=== PATIENT | female | born 1990 | race Caucasian/White ===

== ENCOUNTER 2025-01-16 18:34 | Emergency (ER) | payer OTHER, SELFPAY ==
--- OUTSIDE RECORDS SUMMARY | 2025-01-16 18:37 | XMS_ITS | Patient Health Record ---
Author Organization [facility] Address [address] [place] [address] Care Team Providers Care Weather Strip Mechanic Name Role Phone None, No PCP Primary Care Provider Sugar Gonsalezie Marcelo [phone] Allergies Allergen (clinical drug ingredient) Drug/Non Drug Allergy documented on EMR Reaction Allergy Type Onset Date Status minocycline Minocycline Unknown Drug Allergy Act roscoe Reason For Referral No Information Medications Medication SIG (Take, Route, Frequency, Duration) Notes Start Date End Date Status Reclipsen 0.15-30 MG-MCG 1 tablet Orally Once a day for 30 days 02/03/2023 Active Immunizations Vaccine Route Administration Date Status Comme nts TDAP VACCINE >7 IM IM Intramuscular 08/23/2022 Administere d Social History Tobacco Use: Social History Observation Description Date Details (start date - stop date) Never Smoker NA - NA Tobacco Use/Smoking Question Answer Notes Are you a nonsmoker Plan Of Treatment Pending Test Test Name Order Date CULTURE, URINE, ROUTINE 02/03/2023 Insurance Providers Payer Name Payer Address Payer Phone Subscriber Number Group Number Insured Name Patient Relationship to Insured Coverage Start Date Coverage End Date [facility] Commercial (Ins. Bill) [address] [address] [place], [place] [phone] [id number] Maria Victoria Cooper Self - patient is the insured Medical (General) History Medical History History ICD Code denies medical hx. Surgical History Surgery Date(Month/Year)
--- OUTSIDE RECORDS SUMMARY | 2025-01-16 18:37 | XMS_ITS | Clinical Summary ---
Author Organization [facility] Address [address] [place] [address] Care Team Providers Care Coil Taper Name Role Phone Marcelina Harriet Cannon CNM Primary Care Provider [phone]- [phone] Allergies Active Allergy Reactions Criticality Noted Date Comments Minocycline Hives 11/09/2022 Medications Vit-Fe Fumarate-FA ( MULTIVITAMIN W/IRON) 27-0.8 MG tablet Take by mouth daily Active acetaminophen (TYLENOL) 325 MG tabletIndication s: (normal spontaneous vaginal delivery) Take 2 tablets (650 mg) by mouth every 4 hours as needed for mild pain or fever (greater than or equal to 38 C /100.4 F (oral) or 38.5 C/ 101.4 F (core).) 3 Active docusate sodium (COLACE) 100 MG capsuleIndicatio ns: (normal spontaneous vaginal delivery) Take 1 capsule (100 mg) by mouth 2 times daily 3 Active ibuprofen (ADVIL/MOTRIN) 800 MG tabletIndication s: (normal spontaneous vaginal delivery) Take 1 tablet (800 mg) by mouth once as needed for inflammatory pain (For mild to moderate pain.) 3 Active ferrous sulfate (FEROSUL) 325 (65 Fe) MG tabletIndication s:Anemia due to blood loss, acute Take 1 tablet (325 mg) by mouth every other day 90 tablet 3 Active Active Problems Problem Noted Date Diagnosed Date Encounter for induction of labor 11/09/2022 Immunizations Immunization Administration Dates Next Due MMR (MMRII) 11/14/2022 Social History Tobacco Use Types Packs/Day Years Used Date Smoking Tobacco: Never Smokeless Tobacco: Never Tobacco Cessation:Counseling Given: Not Answered Alcohol Use Standard Drinks/Week Comments Not Currently 0 (1 standard drink = 0.6 oz pur e alcohol) [place] Depression Scale Answer Date Recorded Last EPDS Total Score Not on file 11/14/2022 The thought of harming myself has occurred to me . Never 11/14/2022 Adolescent Education Answer Date Record ed Getting School Help Needed Not on file 03/18 Comments No Sex and Gender Information Value Date Recorded Sex Assigned at Not on file Legal Sex Female 11:28 AM CDT Gender Identity Not on file Sexual Orientation Not on file Last Filed Vital Signs Vital Sign Reading Time Taken Comments Blood Pressure 112/67 11/14/2022 9:00 AM CDT Pulse 70 11/14/2022 9:00 AM CDT Temperature 36.7 C (98.1 F) 11/14/2022 9:00 AM CDT Respiratory Rate 16 11/14/2022 9:00 AM CDT Oxygen Saturation 98% 11/14/2022 9:00 AM CDT Inhaled Oxygen Concentration - - Weight 66 kg (145 lb 9.6 oz) 11/14/2022 6:43 AM CDT Height 162.6 cm (5' 4) 11/09/2022 7:39 AM CDT Body Mass Index 24.99 11/09/2022 7:39 AM CDT Plan of Treatment Health Maintenance Due Date Last Done Comments ADVANCE CARE PLANNING 1990 ANNUAL REVIEW OF HM ORDERS 1990 YEARLY PREVENTIVE VISIT 1993 HEPATITIS B VACCINE (1 of 3 - 19+ 3-dose series) 2009 PAP 10/22/2011 DTAP/TDAP/TD VACCINE (1 - Tdap) 10/22/2015 COVID-19 VACCINE (3 - 2023-2 5 season) 2024 06/16/2021, 10/04/2020 PHQ-2 (once per calendar year) 2024 INFLUENZA VACCINE (#1) 2025 ZOSTER VACCINE (1 of 2) 2040 HEPATITIS C SCREENING Completed 04/13/2022 HIV SCREENING Completed 04/13/2022 HPV VACCINE (No Doses Required) Completed MENINGITIS VACCINE Aged Out No longer eligible based on patient's age to complete this topic PNEUMOCOCCAL VACCINE: PEDIATRICS (0 to 5 YEARS) AND AT-RISK PATIENTS (6 to 49 YEARS) Aged Out No longer eligible b ased on patient's age to complete this topic Procedures Procedure Name Priority Date/Time Associated Diagnosis Comments HIV 1&2 ANTIBODY (EXTERNAL RESULT) Routine 04/13/2022 12:00 PM CDT HEPATITIS C ANTIBODY (EXTERNAL RESULT) Routine 04/13/2022 12:00 PM CDT from Last 3 Months or Most Recently Relevant to Health Maintenance Results * Hepatitis C Antibody (External Result) (04/13/2022 12:00 PM CDT) Hepatitis C Antibody (External) Nonreactive Nonreactive [facility] 04/13/2022 12:0 0 PM CDT us Patient Reported LAB - HIM EXTERNAL RESULT Final Result [facility] [address] [phone] * HIV-1 Antibody (External Result) (04/13/2022 12:00 PM CDT) HIV 1&2 Antibody (External) Nonreactive Nonreactive [facility] 04/13/2022 12:0 0 PM CDT us Patient Reported LAB - HIM EXTERNAL RESULT Final Result Performing Organization Address [facility]/ZIP Co de Phone Number [facility] [address] [place] [address], [facility] [phone] from Last 3 Months or Most Recently Relevant to Health Maintenance Insurance [address] [address] [place] [address] COMMERCIAL Advance Directives For more information, please contact: [phone] * Full Code (Latest Code Status on File) Date Activated Date Inactivated Comments 11/09/2022 8:25 AM 11/14/2022 6:15 PM All basic an d advanced life-sustaining interventions are performed as appropriate Question Answer Comments Code status determined by: Discussion with alonzo nt/ legal decision maker Care Teams Coil Taper Relationship Specialty Start Date End Date Harriet Hewitt CNM [address] [place] [address] PCP - General Midwives 06/01/22
[2025-01-16 18:38] VITALS: BP 127/67; PULSE 66; RESP 18; TEMP 36.5; O2SAT 99; BMI 22.3
--- NOTE | 2025-01-16 18:51 | CRLHL7_ITS ---
For Patients: As a result of the Cures Act, medical imaging exams and procedure reports are released immediately into your electronic medical record. You may view this report before your referring provider. If you have questions, please contact your health care provider. Indication: stepped on by horse swelling/pain thenar EM Technique: Three views of the left hand Comparison: None Findings/Impression: No acute fracture or malalignment. Bones are unremarkable. Soft tissue edema of the thenar eminence. Dictated by Matthias Contreras MD @ 01/16/2025 7:31:07 PM (Electronically Signed)
[2025-01-16] MEDS: LIDOCAINE 1%-EPI 1:100,000 3 ML INFILTRATI (19:23)
--- NOTE | 2025-01-16 19:46 | ED_ITS ---
HPI - General Adult General Date Seen: 01/16/25 Chief complaint: Fall/Minor Trauma Stated complaint: L hand stepped on by horse Time Seen by Provider: 01/16/25 18:35 History of Present Illness HPI narrative: Patient is a 34-year-old generally healthy young woman who was outside working with her family's horses, she says that she was on the ground near 1 horse, another horse came over and in the intervening scuffle she was not able to move out of the way and her left hand was stepped on. She complains of swelling and pain primarily over the thenar eminence. There is a little bit of bleeding there but she has not checked to see where it is coming from. She denies any head, neck or back pain. She says the rest of her is not injured aside from a little bit of a sore spot near her posterior right pelvis. She is walking without difficulty and does not feel there are any broken bones. Infection does not think there broken bones in her hand either but wanted to get it checked out. She is able to move her fingers without difficulty. No numbness or loss of function. Related Data Home Medications ?Medication ?Instructions ?Recorded ?Confirmed No Known Home Medications 01/16/2512/25 Allergies Allergy/AdvReac Type Severity Reaction Status Date / Time minocycline Allergy Intermediate Hives Verified 01/16/25 18:38 [facility] Social History Smoking Status: Never smoker Do you use any of these nicotine containing products: None How often do you have a drink containing alcohol: monthly or less How many standard drinks containing alcohol do you have on a typical day: 1 or 2 AUDIT-C Alcohol total score: 1 Non-prescribed substance use: denies use service: No Exam Narrative: Exam Narrative: Vital signs reviewed In general, alert, well-appearing woman. Head: Normocephalic, atraumatic. Neck: Nontender to palpation. Chest: Nontender, atraumatic. Abdomen: Nontender. Back: Nontender, atraumatic. Extremities: Examination of the left hand shows swelling over the thenar eminence and tenderness in this area. She does not have any tenderness over the dorsal aspect of the 1st MT CP however. No obvious deformity. She does have a 2 cm laceration over the thenar eminence. Distal CMS is intact. Full range of motion of the fingers noted. Const: Vital Signs, click to edit/add: Vital Signs - 24 hr 01/16/25 18:38 Temperature 97.7 F Pulse Rate [Pulse Oximeter] 66 Respiratory Rate 18 Blood Pressure [Ri ght Upper Arm] 127/67 Pulse Oximetry 99 Oxygen Delivery Me thod Room Air Course Course ED Course: She had x-rays of the left hand which by my review did not show obvious fracture. There was 1 area of lucency that I question on the oblique view, this was in the carpal bones, but palpation of her wrist shows absolutely no tenderness at all and she is able to move her wrist without pain. Radiologist reads the x-rays as showing no acute fracture or malalignment. They do not soft tissue edema of the thenar eminence. Procedure note: Wound on the hand was anesthetized using lidocaine with epinephrine, cleaned with saline, explored that evidence of foreign body or injury to deeper structures. I closed this using 5 0 nylon, a total of 4 simple interrupted superficial sutures were placed. She tolerated this well without immediate complication. A dressing is applied by the nurse. She does have just a lot of tenderness over the thenar eminence and overall I decided to put her in a thumb spica splint just to protect the area little bit over the next few days. We discussed what to watch for in terms of wound infection, return any time for signs or symptoms of wound infection. Reviewed that x-rays are negative today, if she continues to have significant pain swelling or does not feel she is improving she should be seen again. Tetanus was updated today. Vital Signs Vital signs: Initial Vital Signs Temperature 97.7 F 01/16/25 18:38 Temperature Source Temporal Artery Scan 01/16/25 18:38 Pulse Rate 66 01/16/25 18:38 Respiratory Rate 18 01/16/25 18:38 Blood Pressure 127/67 01/16/25 18:38 Blood Pressure Mean 87 01/16/25 18:38 Blood Pressure Position Sitting 01/16/25 18:38 Pulse Oximetry 99 01/16/25 18:38 Oxygen Delivery Method Room Air 01/16/25 18:38 Vital Signs Temperature 97.7 F 01/16/25 18:38 Pulse Rate 66 01/16/25 18:38 Respiratory Rate 18 01/16/25 18:38 Blood Pressure 127/67 01/16/25 18:38 Pulse Oximetry 99 01/16/25 18:38 Oxygen Delivery Method Room Air 01/16/25 18:38 Temperature 97.7 F 01/16/25 18:38 Pulse Rate 66 01/16/25 18:38 Respiratory Rate 18 01/16/25 18:38 Blood Pressure 127/67 01/16/25 18:38 Pulse Oximetry 99 01/16/25 18:38 Oxygen Delivery Method Room Air 01/16/25 18:38 Medications Administered Medications: Discontinued Medications Generic Name Dose Route Start Last Admin Trade Name Anai PRN Reason Stop Dose Admin Lidocaine/Epinephrine 3 ml 01/16/25 19:19 01/16/25 19:23 Lidocaine 1%-Epi 1:100,000 INFILTRATI 01/16/25 19:20 3 ml ONCE ONE Administration Medical Decision Making Imaging Data Hand x-ray: Attestation: I have reviewed the pertinent imaging results. Radiologist's impression: Patient: ISAI FLORES Facility: [facility] Site . Site : 1990 Study: XRay-Extremity Left HAND 3V-01/16/2025 7:24:27 PM Ordering Physician: Edgard Salas Final Report: Indication: stepped on by horse swelling/pain thenar EM Technique: Three views of the left hand Comparison: None Findings/Impression: No acute fracture or malalignment. Bones are unremarkable. Soft tissue edema of the thenar eminence. Dictated by Matthias Contreras MD @ 01/16/2025 7:31:07 PM Discharge Plan Discharge Clinical Impression: Hand laceration Patient Disposition: Home, Self-Care Condition: Stable Instructions: Laceration (DC) Additional Instructions: Your x-ray does not show any evidence of broken bones. X-rays are not perfect, and if you continue to have significant pain, swelling, do not feel like you are improving over the next 1-2 weeks, he should be seen again. Keep your wound clean dry and protected. Sutures should be removed in clinic in about 7-10 days. You can use ibuprofen and/or Tylenol as needed for pain. Ice may be helpful as well. The splint can be worn as needed to protect the injured area of your hand. Prescriptions: No Action No Known Home Medications Follow Up/Referrals: Provider,Not a Local [Primary Care Provider, Family Practice] Stand Alone Forms: MyHealth Info Instructions
[2025-01-16] MEDS: TETANUS/DIPHTH/PERTUSSIS 0.5 ML SYRINGE IM (20:02)
== END 2025-01-16 20:06 | disposition home or self-care (01) ==
PROVIDERS: Emergency Provider Emergency Medicine
DX: S61.412A Laceration without foreign body of left hand, initial encounter (principal); Z23 Encounter for immunization; W55.12XA Struck by horse, initial encounter
CPT/HCPCS: 12001; 73130; 90471; 90715; 99283; 99284

== ENCOUNTER 2025-04-28 13:11 | Emergency (ER) | payer OTHER, SELFPAY ==
[2025-04-28] VITALS (74 sets, daily range): BP systolic 94–128; BP diastolic 55–83; PULSE 55–89; RESP 6–29; TEMP 36.9; O2SAT 96–100; BMI 22.3
--- NOTE | 2025-04-28 | XR_ITS ---
Patient: ISAI FLORES Facility:?[facility] Patient ID:?[id number] Site Patient ID:?[id number]. Site :?1990 Study:?XRay-Extremity Right ankle 3v-04/28/2025 8:41:43 AM Ordering Physician:?Deandre Madsen Final Report: Indication: Post reduction attempt #2 Technique: Multiple images of the right ankle submitted, 10 images total in 3 different views. IMPRESSION: Multiple attempts at closed reduction with persistent widening of the mortise. Fractures of the lateral malleolus and distal tibia again noted. Overlying cast. Dictated by Franko Lim MD @ 05/05/2025 10:14:47 AM Signed by:?Franko Lim MD @05/05/2025 10:14:47 AM (Electronic Signature)
--- OUTSIDE RECORDS SUMMARY | 2025-04-28 13:16 | XMS_ITS | Clinical Summary ---
Author Organization [facility] Address [address] [place] [address] Care Team Providers Care Nutrition Club Ambassador Name Role Phone Marcelina Harriet Cannon CNM Primary Care Provider +1- [phone] Allergies Active Allergy Reactions Criticality Noted Date [...] 10/22/2011 DTAP/TDAP/TD VACCINE (1 - Tdap) 10/22/2015 PHQ-2 (once per calendar year) 2024 COVID-19 VACCINE (3 - 2024-2 6 season) 2025 06/16/2021, 10/04/2020 INFLUENZA VACCINE (#1) 2025 ZOSTER VACCINE (1 [...] Result [facility] [address] [phone] * HIV-1 Antibody (External Result) (04/13/2022 12:00 PM CDT) HIV 1&2 Antibody (External) Nonreactive Nonreactive [facility] 04/13/2022 12:0 0 PM CDT us Patient Reported LAB - HIM EXTERNAL RESULT Final Result Performing Organization Address [facility]/ZIP Co de Phone Number [facility] [address] [place] [address], [facility] [phone] from Last 3 Months or Most Recently Relevant to Health Maintenance Insurance [address] [address] [place] [address] COMMERCIAL Advance Directives For more information, please contact: [phone] * Full Code (Latest Code Status on File) Date Activated Date Inactivated Comments 11/09/2022 8:25 AM 11/14/2022 6:15 PM All basic an d advanced life-sustaining interventions are performed as appropriate Question Answer Comments Code status determined by: Discussion with alonzo nt/ legal decision maker Care Teams Nutrition Club Ambassador Relationship Specialty Start Date End Date Harriet Hewitt CNM [address] [place] [address] PCP - General Midwives 06/01/22
--- OUTSIDE RECORDS SUMMARY | 2025-04-28 13:16 | XMS_ITS | Patient Health Record ---
Author Organization [facility] Address [address] [place] [address] Care Team Providers Care Product Strategy Director Name Role Phone None, No PCP Primary Care Provider Alba Gonsalez [phone] Allergies Allergen (clinical drug ingredient) Drug/Non Drug Allergy documented on EMR Reaction Allergy Type Onset Date Status minocycline Minocycline Unknown Drug Allergy Act roscoe Reason For Referral No Information Medications Medication SIG (Take, Route, Frequency, Duration) Notes Start Date End Date Status Reclipsen 0.15-30 MG-MCG 1 tablet Orally Once a day; Duration: 30 days 02/03/2023 Active Immunizations Vaccine Route [...] Insured Coverage Start Date Coverage End Date [facility] Commercial (Ins. Bill) [address] [address] [place], [place] [id number] Maria Victoria Cooper Self - patient is the insured Medical (General) History Medical History History ICD Code denies medical hx. Surgical History Surgery Date(Month/Year)
--- NOTE | 2025-04-28 14:05 | CRLHL7_ITS ---
For Patients: As a result of the Century Cures Act, medical imaging exams and procedure reports are released immediately into your electronic medical record. You may view this report before your referring provider. If you have questions, please contact your health care provider. Indication: Right ankle pain after falling off horse Technique: Three views right ankle IMPRESSION: Displaced fracture of the lateral malleolus. Disruption of the mortise with lateral angulation of the talus in relation to the distal tibia along with widening of the space between the medial talus and medial malleolus. Intra-articular fracture of the medial distal tibia noted with intra-articular extension. Dictated by Franko Lim MD @ 04/28/2025 2:52:48 PM (Electronically Signed)
--- NOTE | 2025-04-28 15:37 | ED.GENADULT ---
HPI - General Adult General Date Seen: 04/28/25 Chief complaint: Extremity Pain/Injury, Lower Stated complaint: hurt right ankle Time Seen by Provider: 04/28/25 15:23 History of Present Illness HPI narrative: Very pleasant 34-year-old female who is generally healthy presenting to the ER today by private car with her with right ankle pain. She is generally healthy and is not on any medications or allergies. She was riding her horse this morning when she fell off. She tried to lay in her feet but landed awkwardly on her right ankle and twisted inward. She fell to the ground because her ankle was hurting. No other injury from the fall. No knee pain. No upper leg pain or hip pain. No back pain. She did not hit her head or injure her upper extremities, neck, shoulders, or arms. No trouble breathing. Normal mental status since the accident. No blurry vision. No nausea vomiting. She is otherwise healthy. No recent illnesses. She has noted a few palpitations lately and has been meaning to schedule an appointment with her doctor to get that checked out. She is not really feeling any palpitations today. She has no other heart history. Last ate late this morning with a bagel with peanut butter. Approximately 4-5 hours prior to arrival. Related Data Home Medications ?Medication ?Instructions ?Recorded ?Confirmed No Known Home Medications 01/16/25 01/16/25 Allergies Allergy/AdvReac Type Severity Reaction Status Date / Time minocycline Allergy Intermediate Hives Verified 01/16/25 18:38 [facility] Social History Smoking Status: Never smoker Do you use any of these nicotine containing products: None How often do you have a drink containing alcohol: monthly or less How many standard drinks containing alcohol do you have on a typical day: 1 or 2 AUDIT-C Alcohol total score: 1 Non-prescribed substance use: denies use service: No Exam Narrative: Exam Narrative: Constitutional: Appears well-developed and well-nourished. Alert. Conversant. Non toxic. HENT: Head: Atraumatic. Nose: Nose normal. Mouth/Throat: Oral mucosa is clear and moist. no trismus. Pharynx normal. Tonsils symmetric. No tonsillar enlargement, erythema, or exudate. Mallampati grade 2 Eyes: Conjunctivae normal. EOM normal. Pupils equal, round, and reactive to light. No scleral icterus. Neck: Normal range of motion. Neck supple. No tracheal deviation present. Cardiovascular: Normal rate, regular rhythm. No gallop. No friction rub. No murmur heard. Symmetric radial artery pulses Pulmonary/Chest: Effort normal. No stridor. No respiratory distress. No wheezes. No rales. No rhonchi . No tenderness. Abdominal: Soft. Bowel sounds normal. No distension. No mass. No tenderness. No rebound. No guarding. Musculoskeletal: RUE: Normal range of motion. No tenderness. No deformity LUE: Normal range of motion. No tenderness. No deformity RLE: Hip nontender. Femur and thigh nontender. Quadriceps nontender. Hamstring nontender. Knees nontender. No tenderness over the patella, proximal fibula, proximal tibia. Gastrocnemius and Achilles nontender. She is endorsing tenderness over the ankle including the medial and lateral malleoli. I did use a trauma isacc to cut her bottom end of her liking and sock. She does have swelling and deformity of her ankle with some medial deviation of the ankle compared to the proximal tibia/fibula. No tenderness of the calcaneus, mid foot including the 5th of the metatarsal. Forefoot nontender. Strong DP pulse. Normal brisk distal capillary refill. Intact distal sensory function to light touch in the dorsal 1st webspace, sole of the foot, medial and lateral foot, medial and lateral ankle. No signs of laceration, bleeding, or open fracture. LLE: Normal range of motion. No edema. No tenderness. No deformity Neurological: Alert and oriented to person, place, and time. Normal strength. CN II-VII intact. No sensory deficit. GCS eye subscore is 4. GCS verbal subscore is 5. GCS motor subscore is 6. Normal coordination Skin: Skin is warm and dry. No rash noted. No pallor. Normal capillary refill. Psychiatric: Normal mood. Normal affect. Const: Vital Signs, click to edit/add: Vital Signs - 24 hr 04/28/25 13:54 04/28/25 17:43 Temperature 98.4 F Pulse Rate [Pulse Oximeter] 72 Respiratory Rate 16 Blood Pressure [Ri ght Upper Arm] 113/76 Pulse Oximetry 99 100 Oxygen Delivery Me thod Room Air Nasal Cannula Oxygen Flow Rate 2 Course Course ED Course: I reviewed the patient's x-rays and they do show a by malleolar ankle fracture dislocation with some deformity of the mortise. We contacted Orthopedics and they advised that we sedate and reduce the fracture here in the ER. They would not recommend immediate surgical intervention. Rather, Orthopedics will contact the patient tomorrow to arrange outpatient follow-up with plans for close outpatient ORIF. Orthopedics does request ankle CT to be done after reduction. Discussed this plan of care with the patient and her . We were finally able to get her moved from hallway bed in the ER bed 5 so we can get her on monitors for safe sedation and reduction Initial procedural sedation was performed by Dr. Dominguez and reduction was performed by myself, Dr. Carrera. Please see my procedure note for my initial reduction attempt. After repeating post reduction x-rays after our initial sedation reduction in reviewing them with Orthopedics, ortho feels that the reduction is inadequate. They will come to the ER to repeat an attempted close reduction Dr. Carrera performed procedural sedation for the Orthopedic repeat reduction attempt. Procedure: Procedural sedation Indication reduction of right ankle fracture dislocation (repeat attempt to performed by orthopedics) ASA category Mallampati category 2 NPO since 11:30 a.m. Appropriate monitoring with environmental monitoring specialist, continuous pulse oximetry, continuous end-tidal CO2 monitoring, blood pressure monitoring. All airway equipment and intubation equipment were ready at the bedside. Patient was sedated with propofol. Patient was a rapid metabolizer room propofol and required multiple doses to maintain sedation during manipulation by Orthopedics. Throughout the entire sedation the patient's airway remained patent, oxygen remain normal, end-tidal CO2 remained normal. There were no complications such as hypoxia, hypotension, apnea, aspiration. Patient remained hemodynamically stable throughout and had no complications of procedural sedation. Please see the notes from the orthopedic provider for details of the 2nd closed reduction. Vital Signs Vital signs: Initial Vital Signs Temperature 98.4 F 04/28/25 13:54 Temperature Source Temporal Artery Scan 04/28/25 13:54 Pulse Rate 72 04/28/25 13:54 Respiratory Rate 16 04/28/25 13:54 Blood Pressure 113/76 04/28/25 13:54 Blood Pressure Mean 88 04/28/25 13:54 Pulse Oximetry 99 04/28/25 13:54 Oxygen Delivery Method Room Air 04/28/25 13:54 Vital Signs Temperature 98.4 F 04/28/25 13:54 Pulse Rate 72 04/28/25 13:54 Respiratory Rate 16 04/28/25 13:54 Blood Pressure 113/76 04/28/25 13:54 Pulse Oximetry 99 04/28/25 13:54 Oxygen Delivery Method Room Air 04/28/25 13:54 Temperature 98.4 F 04/28/25 13:54 Pulse Rate 72 04/28/25 13:54 Respiratory Rate 16 04/28/25 13:54 Blood Pressure 113/76 04/28/25 13:54 Pulse Oximetry 100 04/28/25 17:43 Oxygen Delivery Method Nasal Cannula 04/28/25 17:43 Oxygen Flow Rate 2 04/28/25 17:43 Medications Administered Medications: Generic Name Dose Route Start Last Admin Trade Name Freq PRN Reason Stop Dose Admin Hydromorphone HCl 0.5 mg 04/28/25 19:35 04/28/25 19:40 Hydromorphone 0.5 Mg/0.5 Ml Inj IVP 0.5 mg Q1H PRN Administration Pain Discontinued Medications Generic Name Dose Route Start Last Admin Trade Name Freq PRN Reason Stop Dose Admin Hydromorphone HCl 1 mg 04/28/25 15:39 04/28/25 19:22 Hydromorphone 0.5 Mg/0.5 Ml Inj IVP 04/28/25 15:40 0.5 mg ONCE ONE Administration Sodium Chloride 1,000 mls @ 1,000 mls/hr 04/28/25 15:45 04/28/25 19:46 0.9 % Sodium Chloride 1000 Ml IV 04/28/25 16:44 Infused .Q1H NORIS Infusion Ondansetron HCl 4 mg 04/28/25 15:39 04/28/25 19:51 Ondansetron 2 Mg/Ml Inj IVP 04/28/25 15:40 4 mg ONCE ONE Administration Medical Decision Making MDM Narrative Medical decision making narrative: Very pleasant 34-year-old female presenting to the ER today with an isolated right ankle injury after she fell off a horse this afternoon. The remainder of her head to toe trauma exam is negative. No signs or symptoms of head injury, C-spine injury, torso or thoracic injury, abdominal injury, upper extremity injury. She does have clinical and radiographic evidence for a complex right ankle fracture dislocation. Remainder of the exam of right lower extremity is normal. No evidence for any proximal tibia or fibula injury or knee injury nor is there evidence for femur or hip injury. Patient was neurovascularly intact. No evidence for compartment syndrome or open fracture. After obtaining initial imaging we did consult with Orthopedics and they recommended attempted close reduction here in the ER with plans for outpatient follow-up for orthopedic consultation. ORIF is highly likely to be require with this fracture pattern Patient was sedated by Dr. Dominguez and I performed reduction here in the ER. We were not able to achieve a satisfactory reduction. Patient underwent 2nd reduction attempt, performed by Orthopedics, with Dr. Carrera performing procedural sedation. After the 2nd sedation and reduction attempt patient still do not have an appropriate alignment of her distal tibia compared to the talus. In consultation with the orthopedic team, jeanette BLEVINS and the orthopedic provider, Dr. Meyers, they recommend transfer to a trauma center because she will likely require external fixator and then follow-up ORIF. Discussed with [facility] the patient is accepted by Dr. Castañeda to the ER. She will consult Orthopedics when the patient arrives. Discussed plan of care with the patient and her . They give their consent. They agree to transfer by EMS so she can get adequate analgesia and route. Imaging Data XR ankle: Attestation: I have reviewed the pertinent imaging results. Radiologist's impression: IMPRESSION: Displaced fracture of the lateral malleolus. Disruption of the mortise with lateral angulation of the talus in relation to the distal tibia along with widening of the space between the medial talus and medial malleolus. Intra-articular fracture of the medial distal tibia noted with intra-articular extension. XR Right ankle post reduction First attempt: Attestation: I have reviewed the pertinent imaging results. My impression: I think there is subtly improved angulation but still some medial deviation the talus compared to the distal tibia Radiologist's impression: Impression: Unchanged alignment of the complex ankle fracture, as above. ECG Data Attestation: I personally reviewed and interpreted this ECG as follows: Interpretation: Sinus rhythm with sinus arrhythmia Rate 74 ME interval 150 Normal QRS axis No ST segment elevation or depression QTC 396, QTC 430 Discharge Plan Discharge Clinical Impression: Closed fracture dislocation of ankle Patient Disposition: Xfer Other Condition: Guarded Prescriptions: No Action No Known Home Medications Stand Alone Forms: [employer] Info Instructions Procedures Orthopedic Fracture Reduction Right ankle fracture/dislocation: Written consent by: patient Time Out Performed: Yes Side: right Fracture location: ankle Analgesia: procedural sedation Technique: direct manipulation Post Reduction X-rays Demonstrate: acceptable reduction (Initially I thought the reduction to be acceptable but after discussion Orthopedics they feel like it is still not appropriately aligned and Orthopedics will come to consult and perform a repeat reduction.) Post-reduction neuro exam: intact Post-reduction vascular exam: intact Splint Applied: Yes Patient Tolerated Procedure: well and no complications
--- NOTE | 2025-04-28 17:26 | CRLHL7_ITS ---
For Patients: As a result of the Century Cures Act, medical imaging exams and procedure reports are released immediately into your electronic medical record. You may view this report before your referring provider. If you have questions, please contact your health care provider. Indication: Injury and pain. Technique: Right ankle 2 views. Comparison: Same day ankle radiographs Findings: Bones: Redemonstration of lateral malleolar fracture with lateral angulation of the talus with respect to the distal tibia. Similar appearance of minimally displaced fracture of the distal tibial diametaphysis. Unchanged alignment. No definite new fracture. Soft tissues: Soft tissue swelling about the ankle. Overlying splint. Impression: Unchanged alignment of the complex ankle fracture, as above. Dictated by Elpidio Enciso MD @ 04/28/2025 6:51:42 PM (Electronically Signed)
[2025-04-28] MEDS: PROPOFOL 10 MG/ML INJ 60 MG IVP ×2 (17:52→18:00)
[2025-04-28] MEDS: PROPOFOL 10 MG/ML INJ 140 MG IVP ×2 (18:00→18:46)
--- NOTE | 2025-04-28 18:33 | CRLHL7_ITS ---
For Patients: As a result of the Century Cures Act, medical imaging exams and procedure reports are released immediately into your electronic medical record. You may view this report before your referring provider. If you have questions, please contact your health care provider. Indication: Postreduction images Technique: Right ankle, 3 views. Comparison: Same-day right ankle radiographs. Findings/Impression: Overlying splint material partially obscures fine osseous and soft tissue detail. Acute distal fibular fracture with similar apex lateral angulation when compared to final intra reduction images. Similar alignment of displaced intra-articular, vertically oriented medial malleolar fracture. There is incongruity at the tibiotalar joint with anterior translation and lateral angulation of the talar dome relative to the tibial plafond. Dictated by Denae Solitario MD @ 04/28/2025 8:02:17 PM (Electronically Signed)
[2025-04-28] MEDS: PROPOFOL 10 MG/ML INJ 430 MG IVP (19:00)
[2025-04-28] MEDS: ONDANSETRON 2 MG/ML inj 4 MG IVP (19:51)
--- NOTE | 2025-04-28 20:59 | P.ORCN_ITS ---
History of Present Illness HPI Date Seen: 04/28/25 Consult date: 04/28/25 Requesting physician: Cale Carrera Chief complaint: hurt right ankle Narrative: Orthopedics consulted for pleasant 34-year-old female with acute injury to her right ankle after falling off her horse onto hard ground. Patient believes her ankle internally rotated upon fall. She was wearing tall boots during incident. Immediate sharp pain to the right ankle, but did not note deformity due to her boots being in place. [place] cracking/crunching, and movement about her right ankle with subsequent pain. She and her live very close to the hospital; they presented to the hospital by private vehicle. Patient denies hitting her head or loss of consciousness during injury. She was seen by ED provider, who initially consulted Orthopedics regarding the right ankle fracture with noted deformity. Recommendation was for reduction of the fracture and splinting. Initial reduction under propofol sedation by ED provider went well, however, the reduction was difficult to not only reduce successfully, but also to hold reduction adequately within the splint. Thus, Orthopedics consulted in the ED to see if reduction and splinting could be improved under propofol sedation. Patient denies past right ankle or lower extremity injury. She notes some chronic right knee issues. She has never received anesthesia prior to today. Review of Systems Narrative: No recent fevers, chills, or aches; no numbness or tingling distally. Recent cold. She mentions at initial time of injury, transient tingling sensation in her right toes, which has since resolved. She takes no medications on a daily basis, and has no significant medical history. [facility] Social History Smoking Status: Never smoker Do you use any of these nicotine containing products: None How often do you have a drink containing alcohol: monthly or less How many standard drinks containing alcohol do you have on a typical day: 1 or 2 AUDIT-C Alcohol total score: 1 Non-prescribed substance use: denies use service: No Meds Home Medications and Allergies Home Medications ?Medication ?Instructions ?Recorded ?Confirmed ?Type No Known Home Medications 01/16/2512/25 History Allergies Allergy/AdvReac Type Severity Reaction Status Date / Time minocycline Allergy Intermediate Hives Verified 01/16/25 18:38 Ortho Exam Narrative Exam Narrative: General: Well-developed, well-nourished, A&Ox 3, no apparent acute distress. Pulmonary: Breathing pattern regular, even, without apparent distress or audible wheeze present. Right Ankle: Prior to initial splint removal: Upon arrival to the ER room, patient's right ankle is splinted with ortho glass; there is mild deformity while in the splint, with internal rotation. No obvious swelling of her toes. Toes are pink and warm brisk cap refill; intact sensation to light touch throughout her toes. She is able to move her toes without pain. Post initial splint removal: Mild-moderate swelling of the right ankle. No obvious wounds were or fracture blisters. Internal rotation of the ankle noted. Patient was already sedated with propofol sedation, thus palpation exam did not reveal any tenderness. There is noted crepitus within the ankle both medial and lateral malleoli region. Clear unstable right ankle to any manipulation 2+ DP/PT pulses, pink warm digits with brisk cap refill; intact dermatomes and myotomes distally including the common peroneal, tibial, saphenous, and sural nerve distributions Post secondary splint application: Moderate swelling right ankle No swelling of her toes. Toes are pink and warm brisk cap refill; intact sensation to light touch throughout her toes. Able to move toes with mild pain through the ankle. Const Vital Signs, click to edit/add: Vital Signs - 24 hr 04/28/25 13:54 04/28/25 17:41 04/28/25 17:42 Temperature 98.4 F Pulse Rate 72 73 Pulse Rate [Pulse Oximeter] 72 Respiratory Rate 16 10 L Blood Pressure 116/80 Blood Pressure [Right Upper Arm] 113/76 Pulse Oximetry 99 100 100 Oxygen Delivery Method Room Air Oxygen Flow Rate 04/28/25 17:43 04/28/25 17:45 04/28/25 17:46 Temperature Pulse Rate 85 Pulse Rate [Pulse Oximeter] Respiratory Rate 8 L 22 Blood Pressure 113/70 Blood Pressure [Right Upper Arm] Pulse Oximetry 100 100 Oxygen Delivery Method Nasal Cannula Oxygen Flow Rate 2 04/28/25 17:51 04/28/25 17:56 04/28/25 18:00 Temperature Pulse Rate 89 84 83 Pulse Rate [Pulse Oximeter] Respiratory Rate 18 12 Blood Pressure 128/73 120/73 Blood Pressure [Right Upper Arm] Pulse Oximetry 100 97 99 Oxygen Delivery Method Oxygen Flow Rate 04/28/25 18:01 04/28/25 18:06 04/28/25 18:11 Temperature Pulse Rate 79 80 69 Pulse Rate [Pulse Oximeter] Respiratory Rate 23 10 L 10 L Blood Pressure 112/64 116/63 112/61 Blood Pressure [Right Upper Arm] Pulse Oximetry 98 99 99 Oxygen Delivery Method Oxygen Flow Rate 04/28/25 18:15 04/28/25 18:17 04/28/25 18:21 Temperature Pulse Rate 72 78 66 Pulse Rate [Pulse Oximeter] Respiratory Rate 12 7 L 9 L Blood Pressure 110/56 L 111/60 Blood Pressure [Right Upper Arm] Pulse Oximetry 99 100 100 Oxygen Delivery Method Oxygen Flow Rate 04/28/25 18:27 04/28/25 18:30 04/28/25 18:32 Temperature Pulse Rate 60 59 L 69 Pulse Rate [Pulse Oximeter] Respiratory Rate 18 13 17 Blood Pressure 95/78 112/64 Blood Pressure [Right Upper Arm] Pulse Oximetry 100 100 100 Oxygen Delivery Method Oxygen Flow Rate 04/28/25 18:37 04/28/25 18:41 04/28/25 18:45 Temperature Pulse Rate 61 61 72 Pulse Rate [Pulse Oximeter] Respiratory Rate 17 9 L 10 L Blood Pressure 109/68 107/62 Blood Pressure [Right Upper Arm] Pulse Oximetry 100 100 100 Oxygen Delivery Method Oxygen Flow Rate 04/28/25 18:46 04/28/25 18:51 04/28/25 18:56 Temperature Pulse Rate 76 75 80 Pulse Rate [Pulse Oximeter] Respiratory Rate 20 25 H 27 H Blood Pressure 111/59 L 110/63 110/58 L Blood Pressure [Right Upper Arm] Pulse Oximetry 100 98 96 Oxygen Delivery Method Oxygen Flow Rate 04/28/25 19:00 04/28/25 19:02 04/28/25 19:07 Temperature Pulse Rate 76 72 74 Pulse Rate [Pulse Oximeter] Respiratory Rate 25 H 22 26 H Blood Pressure 101/77 114/60 Blood Pressure [Right Upper Arm] Pulse Oximetry 97 99 99 Oxygen Delivery Method Oxygen Flow Rate 04/28/25 19:11 04/28/25 19:15 04/28/25 19:16 Temperature Pulse Rate 83 79 78 Pulse Rate [Pulse Oximeter] Respiratory Rate 27 H 25 H 29 H Blood Pressure 113/65 113/70 Blood Pressure [Right Upper Arm] Pulse Oximetry 98 99 99 Oxygen Delivery Method Oxygen Flow Rate 04/28/25 19:21 04/28/25 19:21 04/28/25 19:26 Temperature Pulse Rate 74 74 74 Pulse Rate [Pulse Oximeter] Respiratory Rate 11 L 11 L 12 Blood Pressure 106/65 106/65 94/55 L Blood Pressure [Right Upper Arm] Pulse Oximetry 100 100 100 Oxygen Delivery Method Oxygen Flow Rate 04/28/25 19:30 04/28/25 19:31 04/28/25 19:36 Temperature Pulse Rate 70 71 72 Pulse Rate [Pulse Oximeter] Respiratory Rate 11 L 6 L 7 L Blood Pressure 113/65 102/59 L Blood Pressure [Right Upper Arm] Pulse Oximetry 100 100 99 Oxygen Delivery Method Oxygen Flow Rate 04/28/25 19:41 04/28/25 19:45 04/28/25 19:46 Temperature Pulse Rate 75 70 69 Pulse Rate [Pulse Oximeter] Respiratory Rate 8 L 7 L Blood Pressure 101/67 112/83 Blood Pressure [Right Upper Arm] Pulse Oximetry 100 100 100 Oxygen Delivery Method Oxygen Flow Rate 04/28/25 19:51 04/28/25 19:56 04/28/25 20:00 Temperature Pulse Rate 63 59 L 68 Pulse Rate [Pulse Oximeter] Respiratory Rate Blood Pressure 99/68 108/64 Blood Pressure [Right Upper Arm] Pulse Oximetry 100 100 100 Oxygen Delivery Method Oxygen Flow Rate 04/28/25 20:02 04/28/25 20:06 04/28/25 20:12 Temperature Pulse Rate 72 84 75 Pulse Rate [Pulse Oximeter] Respiratory Rate 15 11 L 11 L Blood Pressure 118/69 122/71 121/59 L Blood Pressure [Right Upper Arm] Pulse Oximetry 100 100 100 Oxygen Delivery Method Oxygen Flow Rate 04/28/25 20:15 04/28/25 20:17 04/28/25 20:21 Temperature Pulse Rate 78 55 L 66 Pulse Rate [Pulse Oximeter] Respiratory Rate 10 L 18 12 Blood Pressure 105/78 109/63 Blood Pressure [Right Upper Arm] Pulse Oximetry 100 100 100 Oxygen Delivery Method Oxygen Flow Rate 04/28/25 20:26 04/28/25 20:30 04/28/25 20:31 Temperature Pulse Rate 72 64 67 Pulse Rate [Pulse Oximeter] Respiratory Rate 12 12 Blood Pressure 111/69 105/66 Blood Pressure [Right Upper Arm] Pulse Oximetry 100 100 100 Oxygen Delivery Method Oxygen Flow Rate 04/28/25 20:34 Temperature Pulse Rate Pulse Rate [Pulse Oximeter] Respiratory Rate Blood Pressure Blood Pressure [Right Upper Arm] Pulse Oximetry Oxygen Delivery Method Nasal Cannula Oxygen Flow Rate 2 Results Diagnostic results Ankle/Foot x-ray: report reviewed and image reviewed Additional Comments: Three views right ankle ordered by different provider [facility] dated 04/28/2025. These images were reviewed and corroborated with the radiology report showing a displaced bimalleolar fractures of the right ankle, with the lateral malleolus showing a transverse fracture pattern, while the medial malleolus shows a large more vertical than oblique fracture pattern that is intra-articular with the tibiotalar joint. Notable talar tilt with increased clear space along the lateral tibiotalar joint and near contact along the medial aspect of the talus and distal tibia articular surface. Thus, there is notable disruption to the ankle mortise. Lateral malleolus fracture gap approximately 3.5 mm, medial malleolus fracture gap approximately 5-6 mm at the far distal aspect, intra-articular portion. The lateral view, while not a true lateral, shows a reduced tibiotalar joint. Moderate soft tissue swelling. No loose bodies, further fractures, or interosseous pathology. AP and lateral views right ankle, postreduction ordered by different [facility] dated 05/25/2025. These images were reviewed and corroborated with the radiology report showing redemonstrated bimalleolar ankle fracture. However, both AP and lateral views are less than ideal. We still see the tibiotalar tilt, increased widening along the lateral tibiotalar joint, and lateral view demonstrates an apparent tibiotalar joint subluxation. Orthoglass material in place. Ankle/foot is plantarflexed. Multiple post reduction views of the right ankle, including postreduction and splinting views ordered by different [facility] dated 04/28/2025. These images were reviewed and corroborated with the radiology report showing again redemonstrated complex bimalleolar fracture. Additional reduction attempt shows reasonable reduction of the fracture with improvement of the lateral talus tilt relative to the distal tibia. He still appreciate the large medial malleolus fracture with intra-articular extension into the tibiotalar joint, and the lateral malleolus fracture. Lateral view, which on these images also titled 2nd try, show an overall reduced tibiotalar joint, with mild anterior talus subluxation relative to the tibia. On this view, we can appreciate the large medial malleolus fracture component. Post splinting images, labeled as 7th try show a reasonably reduced bimalleolar fracture, with decreased talar tilt relative to the tibia. Splinting material present. Postreduction images right ankle ordered by different provider [facility] dated 04/28/2025. These images were reviewed and corroborated with the report showing loss of reduction tibiotalar joint, now with increased talar tilt, and medial talar shift, causing further displacement of the medial malleolus fragment. This results in tibiotalar joint subluxation. Lateral view shows the talus anterior relative to the tibia. Fractures remain closed. Moderate soft tissue swelling. No additional fractures identified. Assessment and Plan Assessment and plan (1) Closed fracture dislocation of ankle: Problem comment: 34-year-old female closed, acute bimalleolar fracture with subluxation/dislocation of the tibiotalar joint, with a disrupted ankle mortise (date of injury 04/28/2025) - post reduction attempts and splinting under propofol conscious sedation. Status: Acute Plan We had a thorough discussion regarding nature of patient's right ankle injury, and the complex nature of her right ankle fractures/instability. Explained how initial reduction attempt was less than ideal, and how it was recommended to perform an additional reduction attempt to see if pressure can be taken off the distal tibia and medial aspect talus. Explained how having undue pressure on these cartilage surfaces of her tibiotalar joint for numerous days can result in damage to the cartilage. Also explained the complexity and likely instability of the ankle, and that we may not be able to achieve a fully anatomic position of the ankle mortise with a secondary reduction. Nevertheless, she will eventually need surgery for ankle ORIF to anatomically reduce and stabilize the ankle mortise and fractures. After shared decision making with patient and patient's , she elects to proceed with a 2nd reduction attempt of her complex right ankle fracture. Risks, benefits, and alternatives to the procedure were explained detail, which include, but are not limited to neurovascular injury, ligament injury, worsening of the fracture pattern and/or ankle joint via reduction and splinting attempts, pain, stiffness, and complications from propofol sedation. She states u nderstanding and wishes to proceed with right ankle fracture closed reduction with manipulation under anesthesia via propofol sedation, and splinting. A time-out was performed identifying correct patient, correct procedure, and correct medicine to be used for anesthesia. After patient received adequate sedation via propofol, she was found to be relaxed without pain. The initial splint was removed. This showed a mildly deformed right ankle with slight ankle inversion, and moderate ankle swelling. The right hip and knee were brought to 90?, and held in this position by ED nurse. Reduction was performed to the right ankle with slight traction, ankle eversion, and direct palpation. During these attempts, it was difficult to keep the patient's hip and knee at 90?. Original reduction attempts showed a much improved ankle mortise, and stable medial and lateral malleolus fractures. Talus appeared slightly anterior relative to the distal tibia on lateral view. It was felt that reduction was in adequate position, and preparation was made for splinting with plaster. During this time, the ankle was found to be grossly unstable, and was difficult to keep in the original reduced position. At this point, while the splinting material was applied, it was clear on inspection that reduction of the ankle was lost. Attempts were made to correct ankle mortise to the original reduction position while the stirrup and posterior slab plaster material was still malleable. X- ray communication electronic technician labeled this as many reduction attempts, however, this was simply applying pressure, and slight traction to reobtain the initial reduction position of the ankle mortise; there was no complete reduction attempt made after the plaster was applied. We also found it challenging to acquire an adequate AP and lateral view with the portable x-ray machine. It is apparent on the labeled 7th try AP view, that the ankle mortise appears reasonably reduced, and comparable to the pre splinting reduction views, while the lateral view still demonstrates mildly anterior talus relative to the distal tibia though this lateral view is less than ideal. It was not until after the plaster was fully formed that official post reduction images were taken 20 minutes later demonstrating loss of the ankle mortise reduction. At this time, patient was already awoken from propofol sedation. There were no anesthesia complications during the procedure. There were complications performed during closed reduction, as the ankle mortise reduction was lost during splinting. The splint was allowed to fully expel all heat prior to resting elevated on blankets. Patient denied any excessive heat felt at the leg or ankle due to splinting material. Patient was complaining of increased right ankle pain, but demonstrated intact sensory and motor function. She was provided with IV pain medication, which mildly improved her pain. It was determined that further closed reduction attempts were not prudent at this time. It was recommended that patient be seen this evening by [facility] trauma center for possible right ankle ORIF versus external fixator application to help stabilize the tibiotalar joint. Decision o f whether or not to apply an external fixator would likely be based solely on amount of soft tissue swelling present later this evening. [facility] agreed to accept patient for definitive management of her right ankle injury. Patient was visibly upset about the news that transfer to [facility] would be the next step to treat the patient. She was transported to [facility] via ambulance. Thank you for allowing me to participate in the patient's care.
[2025-04-28] MEDS: KETAMINE HCL 100 MG/ML inj 15 MG IVP (22:13)
== END 2025-04-28 22:36 | disposition other institution (70) ==
PROVIDERS: Emergency Provider Family Medicine
DX: S82.301A Unspecified fracture of lower end of right tibia, initial encounter for closed fracture (principal); V80.010A Animal-rider injured by fall from or being thrown from horse in noncollision accident, initial encounter
CPT/HCPCS: 27825; 73600; 73610; 93005; 96374; 96375; 99156; 99283; 99285; J1171; J2405; J2704; J3490; J7030

== ENCOUNTER 2025-04-28 22:05 | Outpatient (CLI) | payer OTHER, SELFPAY | END 2025-04-28 22:06 | disposition home or self-care (01) | LOC: AMB 05-03 13:43 | PROVIDERS: Visit Provider Emergency Medicine Emergency Medical Services | DX: S82.61XA Displaced fracture of lateral malleolus of right fibula, initial encounter for closed fracture (principal) | CPT/HCPCS: A0425; A0433 ==